=== PATIENT | male | born 1955 | race Caucasian/White ===

== ENCOUNTER 2018-02-02 09:39 | Day surgery (SDC) | payer MEDICARE ==
[2018-02-01 10:00] LABS: BASOPHILS % (AUTO) 0.5 % (0-1); EOSINOPHILS # (AUTO) 0.3 X10'3 (0-0.9); EOSINOPHILS % (AUTO) 4.3 % (0-6); HEMATOCRIT 48.8 % (42.0-52.0); HEMOGLOBIN 16.6 g/dl (14.0-17.9); LYMPHOCYTES % (AUTO) 31.1 % (21-51); MEAN CORPUSCULAR HEMOGLOBIN 31.8 PG (27.0-31.0); MEAN CORPUSCULAR HGB CONC 34.1 % (33.0-36.5); MEAN CORPUSCULAR VOLUME 93.5 FL (78-98); MEAN PLATELET VOLUME 8.3 FL (7.4-10.4); MONOCYTES # (AUTO) 0.5 X10'3 (0-0.9); MONOCYTES % (AUTO) 7.1 % (2-12); NEUTROPHILS # (AUTO) 3.8 X10'3 (1.8-7.7); PLATELET COUNT 201 X10'3 (140-440); RED BLOOD COUNT 5.22 X10'6 (4.70-6.10); WHITE BLOOD COUNT 6.6 X10'3 (4.5-11.0)
[2018-02-01 10:10] LABS: PARTIAL THROMBOPLASTIN TIME 26 SECONDS (22-32)
[2018-02-01 10:14] LABS: ALBUMIN 3.9 G/DL (3.4-5.0); ANION GAP 9 (8-16); BLOOD UREA NITROGEN 13 MG/DL (7-18); BUN/CREATININE RATIO 15.5 (5.4-32.0); CALCIUM 9.4 MG/DL (8.5-10.1); CHLORIDE 103 MMOL/L (99-107); CREATININE 0.84 MG/DL (0.60-1.10); GLUCOSE 135 MG/DL (70-104); POTASSIUM 4.4 MMOL/L (3.5-5.1); SODIUM 140 MMOL/L (135-145); TOTAL CARBON DIOXIDE 28.2 MMOL/L (24-32); eGFR > 90 ML/MIN
[2018-02-02] VITALS (10 sets, daily range): BP systolic 128–165; BP diastolic 69–89
[~2018-02-02] VITALS: Ht 185.4 cm; Wt 103.8 kg
[2018-02-02] MEDS ORDERED: acetylcysteine 200 MG/ml 4ml vial PO PRN (10:00)
[2018-02-02] MEDS ORDERED: normal saline 1000ml 1,000 ML IV SCH (10:00)
[2018-02-02] MEDS ORDERED: diphenhydrAMINE 25mg capsule PO PRN (10:00)
[2018-02-02] MEDS ORDERED: ALBU8HFA PO (10:24)
[2018-02-02] MEDS ORDERED: DOXA4TAB2 PO (10:24)
[2018-02-02] MEDS ORDERED: CYCL10TA26 PO (10:24)
[2018-02-02] MEDS ORDERED: BISO1TAB39 PO (10:24)
[2018-02-02] MEDS ORDERED: NIFE90TA2 PO (10:24)
[2018-02-02] MEDS ORDERED: METF500T PO (10:24)
[2018-02-02] MEDS ORDERED: HYDR4TAB45 PO (10:24)
[2018-02-02] MEDS ORDERED: ATOR40TA3 PO (10:24)
[2018-02-02] MEDS ORDERED: METH-603 PO (10:24)
[2018-02-02] MEDS ORDERED: ASPI-1265 PO (10:24)
[2018-02-02] MEDS ORDERED: LORazepam 0.5 MG tablet PO PRN (10:30)
[2018-02-02] MEDS ORDERED: nitroGLYCERIN-Tridil 50MG/D5W 250 ML IV ONE (13:07)
[2018-02-02] MEDS ORDERED: heparin 1,000unit/ml 10ml vial 10 ML ONE (13:07)
[2018-02-02] MEDS ORDERED: iohexol 350 MG/ML 50ML vial IV ONE (13:07)
[2018-02-02] MEDS ORDERED: iohexol 350MG/ML 100ml bottle IV ONE (13:07)
[2018-02-02] MEDS ORDERED: fentaNYL/PF 50MCG/1 ML 2ML syringe ONE ×2 (13:32→15:01)
[2018-02-02] MEDS ORDERED: LIDOcaine 1%/PF (10mg/ml) 5ml vial ONE ×2 (13:33→13:48)
[2018-02-02] MEDS ORDERED: midazolam 2 mg/2 ml injection ONE ×2 (13:33→15:01)
== END 2018-02-02 20:00 | disposition home or self-care (01) ==
LOC: SSTAY O 09:39
PROVIDERS: ATTEND Internal Medicine Cardiovascular Disease
DX: I25.10 Atherosclerotic heart disease of native coronary artery without angina pectoris (principal); I74.5 Embolism and thrombosis of iliac artery; E11.51 Type 2 diabetes mellitus with diabetic peripheral angiopathy without gangrene; E78.5 Hyperlipidemia, unspecified; I10 Essential (primary) hypertension; F17.210 Nicotine dependence, cigarettes, uncomplicated; J44.9 Chronic obstructive pulmonary disease, unspecified; M19.90 Unspecified osteoarthritis, unspecified site; Z79.82 Long term (current) use of aspirin; Z79.84 Long term (current) use of oral hypoglycemic drugs; Z96.642 Presence of left artificial hip joint; Z90.89 Acquired absence of other organs; Z72.89 Other problems related to lifestyle; Z98.52 Vasectomy status; Z98.890 Other specified postprocedural states; Z79.899 Other long term (current) drug therapy
CPT/HCPCS: 36415; 75625; 80048; 82948; 85025; 85610; 85730; 93458; 99152; 99153; A6257; C1769; J1644; J2001; J2250; J3010; J3490; J7030; Q0163; Q9967

== ENCOUNTER 2018-04-19 06:48 | Day surgery (SDC) | payer MEDICARE ==
[2018-04-19] VITALS (10 sets, daily range): BP systolic 139–158; BP diastolic 60–91
[~2018-04-19] VITALS: Ht 185.4 cm; Wt 100.2 kg
[~2018-04-19 06:48] MED LIST: ALBU8HFA PO; ASPI-1265 PO; ATOR40TA3 PO; BISO1TAB39 PO; CYCL10TA26 PO; DOXA4TAB2 PO; HYDR4TAB45 PO; METF500T PO; METH-603 PO; NIFE90TA2 PO
[2018-04-19] MEDS ORDERED: normal saline 1000ml 1,000 ML IV PRN (07:15)
[2018-04-19 07:59] LABS: BASOPHILS % (AUTO) 0.3 % (0-1); EOSINOPHILS # (AUTO) 0.1 X10'3 (0-0.9); EOSINOPHILS % (AUTO) 2.2 % (0-6); HEMATOCRIT 48.7 % (42.0-52.0); HEMOGLOBIN 16.4 g/dl (14.0-17.9); LYMPHOCYTES # (AUTO) 1.7 X10'3 (1.1-4.8); MEAN CORPUSCULAR HEMOGLOBIN 31.4 PG (27.0-31.0); MEAN CORPUSCULAR HGB CONC 33.6 % (33.0-36.5); MEAN CORPUSCULAR VOLUME 93.4 FL (78-98); MEAN PLATELET VOLUME 8.5 FL (7.4-10.4); MONOCYTES # (AUTO) 0.5 X10'3 (0-0.9); MONOCYTES % (AUTO) 7.4 % (2-12); NEUTROPHILS % (AUTO) 63.1 % (42-75); PLATELET COUNT 178 X10'3 (140-440); RED BLOOD COUNT 5.21 X10'6 (4.70-6.10); RED CELL DISTRIBUTION WIDTH 14.9 % (11.5-14.5); WHITE BLOOD COUNT 6.3 X10'3 (4.5-11.0)
[2018-04-19 08:01] LABS: ALBUMIN 3.8 G/DL (3.4-5.0); ANION GAP 13 (8-16); BLOOD UREA NITROGEN 12 MG/DL (7-18); BUN/CREATININE RATIO 13.8 (5.4-32.0); CALCIUM 9.1 MG/DL (8.5-10.1); CHLORIDE 102 MMOL/L (99-107); CREATININE 0.87 MG/DL (0.60-1.10); GLUCOSE 132 MG/DL (70-104); POTASSIUM 4.3 MMOL/L (3.5-5.1); SODIUM 138 MMOL/L (135-145); TOTAL CARBON DIOXIDE 23.2 MMOL/L (24-32); eGFR 89 ML/MIN
[2018-04-19] MEDS ORDERED: fentaNYL/PF 50MCG/1 ML 2ML syringe IV PRN (08:50)
[2018-04-19] MEDS ORDERED: LIDOcaine 1%/PF 5ML 10 MG/ML VIAL SQ ONE (08:50)
[2018-04-19] MEDS ORDERED: midazolam 2 mg/2 ml injection IV PRN (08:50)
[2018-04-19] MEDS ORDERED: iohexol 300mg/ml 100ml inj. ONE ×2 (09:11→09:17)
[2018-04-19] MEDS ORDERED: LIDOcaine 1%/PF 5ML 10 MG/ML VIAL ONE ×2 (09:11→09:17)
[2018-04-19] MEDS ORDERED: midazolam 2 mg/2 ml injection ONE ×3 (09:17→09:49)
[2018-04-19] MEDS ORDERED: heparin 1,000 UNITS/NS 500ml 500 ML ONE (09:17)
[2018-04-19] MEDS ORDERED: fentaNYL/PF 50MCG/1 ML 2ML syringe ONE ×3 (09:17→09:49)
[2018-04-19] MEDS ORDERED: clopidogrel 300mg tablet PO ONE (10:10)
[2018-04-19] MEDS ORDERED: normal saline 1000ml 1,000 ML IV SCH (10:22)
== END 2018-04-19 15:00 | disposition home or self-care (01) ==
LOC: SSTAY O 06:48
PROVIDERS: ATTEND Radiology Diagnostic Radiology
DX: I70.92 Chronic total occlusion of artery of the extremities (principal); I70.211 Atherosclerosis of native arteries of extremities with intermittent claudication, right leg; I25.10 Atherosclerotic heart disease of native coronary artery without angina pectoris; I10 Essential (primary) hypertension; E78.5 Hyperlipidemia, unspecified; J44.9 Chronic obstructive pulmonary disease, unspecified; M19.90 Unspecified osteoarthritis, unspecified site; F17.210 Nicotine dependence, cigarettes, uncomplicated; J45.998 Other asthma; M06.9 Rheumatoid arthritis, unspecified; E11.51 Type 2 diabetes mellitus with diabetic peripheral angiopathy without gangrene; Z79.82 Long term (current) use of aspirin; Z90.89 Acquired absence of other organs; Z72.89 Other problems related to lifestyle; Z98.52 Vasectomy status; Z96.643 Presence of artificial hip joint, bilateral; Z96.669 Presence of unspecified artificial ankle joint; Z79.84 Long term (current) use of oral hypoglycemic drugs; Z79.891 Long term (current) use of opiate analgesic; Z79.899 Other long term (current) drug therapy; Z98.890 Other specified postprocedural states
CPT/HCPCS: 36415; 37221; 76937; 80048; 82948; 85025; 99152; 99153; A6219; C1725; C1760; C1769; C1876; C1894; J1644; J2001; J2250; J3010; J7030; Q9967; A4620

== ENCOUNTER 2022-02-26 11:43 | Observation (INO) | payer MEDICARE, BC ==
[2022-02-17 14:49] LABS: BASOPHILS % (AUTO) 0.6 % (0-1); EOSINOPHILS # (AUTO) 0.1 X10'3 (0-0.9); EOSINOPHILS % (AUTO) 1.3 % (0-6); LYMPHOCYTES # (AUTO) 1.6 X10'3 (1.1-4.8); LYMPHOCYTES % (AUTO) 19.4 % (21-51); MEAN CORPUSCULAR HEMOGLOBIN 29.7 PG (27.0-31.0); MEAN CORPUSCULAR HGB CONC 33.4 g/dL (33.0-36.5); MEAN CORPUSCULAR VOLUME 88.8 FL (78-98); MEAN PLATELET VOLUME 8.1 FL (7.4-10.4); MONOCYTES # (AUTO) 0.5 X10'3 (0-0.9); MONOCYTES % (AUTO) 6.6 % (2-12); NEUTROPHILS % (AUTO) 72.1 % (42-75); PRE OP HEMATOCRIT 45.4 % (42.0-52.0); PRE OP HEMOGLOBIN 15.2 g/dL (14.0-17.9); PRE OP PLATELET COUNT 264 X10'3 (140-440); RED BLOOD COUNT 5.11 X10'6 (4.70-6.10); RED CELL DISTRIBUTION WIDTH 15.1 % (11.5-14.5)
[2022-02-17 14:49] LABS: CLARITY,URINE SLIGHTLY CLOUDY (Clear); COLOR,URINE YELLOW (Yellow); GLUCOSE, URINE NEGATIVE (Neg); KETONES,URINE NEGATIVE (Neg); LEUKOCYTE ESTERASE ,URINE NEGATIVE (Neg); NITRITES, URINE NEGATIVE (Neg); OCCULT BLOOD,URINE NEGATIVE (Neg); PH,URINE 5.5 (4.8-8.0); PROTEIN,URINE NEGATIVE (Neg); UROBILINOGEN,URINE 0.2 E.U/dL (0.2-1.0)
[2022-02-17 14:58] LABS: UA COLLECTION TYPE CLN CATCH MIDSTREAM
[2022-02-17 14:59] LABS: RBC,URINE 0-2 /HPF (0-2)
[2022-02-17 15:00] LABS: BACTERIA,URINE NONE SEEN /HPF (Neg); MUCUS STRANDS MANY /LPF (Neg); SQUAMOUS EPITHELIAL CELL,UR MODERATE /LPF (FEW)
[2022-02-17 15:18] LABS: ALBUMIN 4.2 G/DL (3.4-5.0); ALBUMIN/GLOBULIN RATIO 1.1 (1.1-1.5); ALKALINE PHOSPHATASE 95 IU/L (46-116); BLOOD UREA NITROGEN 17 MG/DL (7-18); BUN/CREATININE RATIO 14.8 (5.4-32.0); CALCIUM 9.4 MG/DL (8.5-10.1); CHLORIDE 103 MMOL/L (99-107); CREATININE 1.15 MG/DL (0.60-1.10); PRE OP ALT 34 U/L (30-65); PRE OP ANION GAP 11 (8-16); PRE OP AST 23 U/L (10-37); PRE OP BILIRUB, TOTAL 0.5 MG/DL (0.0-1.0); PRE OP GLUCOSE 120 MG/DL (70-104); PRE OP POTASSIUM 4.2 MMOL/L (3.4-5.1); PRE OP SODIUM 138 MMOL/L (135-145); TOTAL CARBON DIOXIDE 23.8 MMOL/L (24-32); eGFR 63 ML/MIN
[~2022-02-26] VITALS: Ht 185.4 cm; Wt 98.3 kg
[2022-02-26] VITALS (19 sets, daily range): BP systolic 130–196; BP diastolic 74–92
[~2022-02-26 11:43] MED LIST changes: +ASCO500C17 PO; -ASPI-1265 PO; -ATOR40TA3 PO; +ATOR40TA7 PO; +BUPR2TAB11 SL; +DOCUMENT DATE & TIME OF BETA-BLOCKER PO ONE; +ESZO3TAB44 PO; +FENO145T38 PO; -HYDR4TAB45 PO; +LOSA50TA64; +MECO10005 PO; -METF500T PO; -METH-603 PO; +SEMA1PEN3 SQ; +albuterol 2.5 MG/3 ML nebule NEB ONE; +ceFAZolin inj. 2,000 MG in dextrose 5%-water 100 ML IV ONE; +famotidine 20mg tablet PO ONE; +vancomycin 1,500 MG in NS 300ml IV soln IV ONE
[2022-02-26] MEDS: ringers solution, lacted 1,000 ML IV SCH ×2 (13:01→20:05)
[2022-02-26] MEDS ORDERED: bacitracin 15gm ointment TP ONE (14:49)
[2022-02-26] MEDS ORDERED: sevoflurane 250ml liquid IH ONE (15:22)
[2022-02-26] MEDS ORDERED: midazolam 1 mg/ML 2ml injection ONE (15:29)
[2022-02-26] MEDS ORDERED: fentaNYL /PF 50mcg/ml 5ml ampule ONE (15:53)
[2022-02-26] MEDS ORDERED: ROPIVAcaine 0.5% (5mg/ml) 30ml vial ONE ×2 (15:58)
[2022-02-26] MEDS ORDERED: propofol inj 20 ML IV ONE (15:58)
[2022-02-26] MEDS ORDERED: LIDOcaine 2% (20mg/ml) 5ml vial ONE (15:58)
[2022-02-26] MEDS ORDERED: ondansetron/PF 4mg/2ml inj ONE (16:29)
[2022-02-26] MEDS ORDERED: dexamethasone sod phosphate 4mg/ml inj. ONE (16:29)
[2022-02-26] MEDS ORDERED: ondansetron/PF 4mg/2ml inj IV PRN ×2 (16:35→17:55)
[2022-02-26] MEDS ORDERED: meperidine/PF 25mg/ml syringe IV PRN ×3 (16:35)
[2022-02-26] MEDS ORDERED: morphine 2 MG/ML inj. syringe IV PRN ×3 (16:35→17:55)
[2022-02-26] MEDS ORDERED: hydrALAZINE 20mg/ml inj. IV PRN (16:35)
[2022-02-26] MEDS ORDERED: acetaminophen 1,000mg/100ml IV 100 ML IV PRN (16:35)
[2022-02-26] MEDS ORDERED: ringers solution, lacted 1,000 ML IV SCH (16:35)
[2022-02-26] MEDS ORDERED: morphine 4 MG/ML inj SYRINge IV PRN (16:35)
[2022-02-26] MEDS ORDERED: labetalol 20mg/4ml (5mg/ml) syringe IV PRN (16:35)
[2022-02-26] MEDS ORDERED: proCHLORperazine 10 MG/2 ml inj IV PRN (16:35)
[2022-02-26] MEDS ORDERED: ketorolac trometh. 30mg/ml inj. IV ONE (16:35)
[2022-02-26] MEDS ORDERED: ROPIVAcaine 0.2% (10 MG/5 ML) BOLUS INJECTION POPLITEAL PRN (16:40)
[2022-02-26] MEDS ORDERED: ROPIVAcaine 0.2%/PF PUMP/bolus 545 ML POPLITEAL SCH (16:40)
[2022-02-26] MEDS ORDERED: POTASSIUM BICARB 20meq eff tab 20 MEQ TABLET.EFF PO PRN ×2 (17:55)
[2022-02-26] MEDS ORDERED: mag hydrox/Alum hydrox/simeth 30ml oral suspension PO PRN (17:55)
[2022-02-26] MEDS ORDERED: potassium CL 10mEq/100ml bag 100 ML IV PRN (17:55)
[2022-02-26] MEDS ORDERED: magnesium 4gm in 100ml NS 100 ML IV PRN (17:55)
[2022-02-26] MEDS ORDERED: acetaminophen 325mg tablet PO PRN (17:55)
[2022-02-26] MEDS ORDERED: magnesium hydroxide 30ml (MOM) UD suspension PO PRN (17:55)
[2022-02-26] MEDS ORDERED: magnesium 2GM in 50ml NS 50 ML IV PRN (17:55)
[2022-02-26] MEDS ORDERED: magnesium Cl slow-release 64mg tablet PO PRN (17:55)
[2022-02-26] MEDS ORDERED: ATOR80TA PO (18:11)
[2022-02-26] MEDS ORDERED: LOSA50TA3 PO (18:12)
--- NOTE | 2022-02-26 18:15 | NUR ---
PT ARRIVED TO VIA BED ACCOMPANIED BY DR. CHANCE-ANESTHESIA REPORT GIVEN, PT WAKING UP, VSS, DENIES PAIN, ON-Q CATHETER IN PLACE, LEFT FOOT DSRG-SPLINT AND ELIO CDI, ELEVATED WITH ICE BEHIND KNEE, SCDS ON, PIV 20G TO LEFT FA, LEFT FOOT-TOES PINK WARM, + CAP REFILL
[2022-02-26] MEDS ORDERED: zolpidem 5mg tablet PO PRN (19:10)
[2022-02-26] MEDS ORDERED: non-formulary drug (albuterol inhaler (Pro-Air Inhaler) 0 PUFFS) PO PRN (19:10)
[2022-02-26] MEDS ORDERED: DEXTROSE 15 GM of carb/4 tabs (each vial/BOTTLE has 4 tablets) PO PRN ×2 (19:45)
[2022-02-26] MEDS ORDERED: insulin Lispro (HumaLOG) vial - multi-dose SQ SCH (19:45)
[2022-02-26] MEDS ORDERED: dextrose 50%-water 50ml dispensing syringe IV PRN ×2 (19:45)
[2022-02-26] MEDS ORDERED: glucagon, human recombinant 1mg kit SUBCUT PRN (19:45)
[2022-02-26] MEDS ORDERED: MESSAGE TO PHARMACY PO ONE (19:45)
--- NOTE | 2022-02-26 19:45 | NUR ---
PT OK WITH STAYING OVERNIGHT, WAS ABLE TO VOID ONCE STANDING, PAIN UNDER CONTROL 01/01, ON-Q ATTACHED AND RUNNING AT 2ML/HR-PT EDUCATED ON USE, SCDS ON, PIV 20G LEFT UE-LR RUNNING AT 100ML/HR, SPOKE WITH PT'S -SHE IS GOING TO BRING HIM IN SOME DINNER, VSS, DRSG TO LEFT FOOT-CDI, TOES ON LEFT FOOT-PINK WARM, ABLE TO WIGGLE, REPORT CALLED TO MARIA R RN-ALL QUESTIONS ANSWERED, TAKEN WITH ALL BELONGINGS TO RM [id number], BED LOW AND LOCKED, CALL LIGHT IN REACH, HOOKED UP TO MONITORS, PRIMARY RN IN TO RECEIVE PT.
[2022-02-26] MEDS: K and/or MAG REPLACEMENT MC SCH (20:00)
[2022-02-26 20:29] LABS: MAGNESIUM 1.8 MG/DL (1.5-2.4); POTASSIUM 4.1 MMOL/L (3.5-5.1)
[2022-02-26 20:57] LABS: HEMOGLOBIN A1C 6.7 % (4.5-6.2)
[2022-02-26] MEDS: BUPRENORPHINE HCL 2 MG SL SCH (21:00)
[2022-02-26] MEDS ORDERED: insulin glargine (Lantus) pen - multi-dose SQ SCH (21:00)
[2022-02-26] MEDS ORDERED: atorvastatin 20mg tablet PO SCH (21:00)
[2022-02-26] MEDS: cyclobenzaprine 10mg tablet PO SCH (21:05)
[2022-02-26] MEDS: docusate sod 100mg capsule PO SCH (21:05)
--- NOTE | 2022-02-26 21:21 | NUR ---
patient just ate a sandwich and drank a milkshake. 2100 BS 257. patient refused Lantus at this time, but we agreed to recheck BS at 0200
[2022-02-27 02:00] VITALS: BP 142/80
[2022-02-27] MEDS: HYDROcodone/acetaminophen 10/325mg tab PO PRN ×2 (02:19→08:33)
[2022-02-27 06:00] VITALS: BP 166/69
[2022-02-27] MEDS: cyclobenzaprine 10mg tablet PO SCH (07:11)
[2022-02-27] MEDS: docusate sod 100mg capsule PO SCH (07:12)
[2022-02-27] MEDS ORDERED: ascorbic acid 500mg tablet PO SCH (08:00)
[2022-02-27] MEDS ORDERED: BISOPROLOL PO SCH (08:00)
[2022-02-27] MEDS ORDERED: cyanocobalamin 500mcg tablet PO SCH (08:00)
[2022-02-27] MEDS ORDERED: NIFEdipine XL 30mg tablet PO SCH (08:00)
[2022-02-27] MEDS ORDERED: doxazosin mesylate 2mg tablet PO SCH (08:00)
[2022-02-27] MEDS ORDERED: fenofibrate 145mg tablet PO SCH (08:00)
[2022-02-27] MEDS: BUPRENORPHINE HCL 2 MG SL SCH ×2 (08:00→13:00)
[2022-02-27] MEDS: K and/or MAG REPLACEMENT MC SCH (08:00)
[2022-02-27] MEDS ORDERED: HYDROCHLOROTHIAZIDE PO SCH (08:00)
[2022-02-27] MEDS ORDERED: losartan 50mg tablet PO SCH (08:00)
[2022-02-27 08:11] LABS: MAGNESIUM 1.9 MG/DL (1.5-2.4); POTASSIUM 3.9 MMOL/L (3.5-5.1)
--- NOTE | 2022-02-27 09:05 | NUR ---
DM Consult: pt hx T2DM A1C 6.7% this admit per EMR; appropriate A1C at this time. Addendum: 02/27/22 at [address] Amended: Links added.
[2022-02-27 10:00] VITALS: BP 122/62
--- NOTE | 2022-02-27 13:07 | NUR ---
Per AVI Cruz, no need a new OnQ ball for this patient upon discharge.
--- NOTE | 2022-02-27 13:23 | NUR ---
Discharge instructions given to patient, patient verbalized understanding of all instructions made. Peripheral IV catheter removed, tip intact. Instructed patient to ensure he has all his belongings with him before leaving the hospital. Patient was instructed on when to remove the OnQ ball catheter and how to do it. Patient verbalized understanding of instructions and he told me that this was his third time to do this as he had OnQ ball before. Patient was instructed to follow up with Dr. Rdoriguez as previously instructed.
--- NOTE | 2022-03-02 11:11 | NUR ---
Case Management DC follow up : Spoke w /Pt: via telephone .S/p: Pt Reports: " laughing, that he feels great, feels like he can walk on his left foot!" Reiterated discharge orders of no weight bearing on left foot and to keep leg dry.Patient verbalizes understanding, and compliance with after care.Denies fever, s/s of infection and or drainage at lt foot incision site.Verbalized he removed On Q Ball yesterday,03/01/22, feels great , mild pain addressed with Tylenol.Verbalizes he plans to call Dr. Rodriguez office today and schedule follow up appointment. Needs met , questions/concerns addressed at DC. Verbalizes the staff was great in his care;however, would have liked to have been discharged earlier.
[2022-03-02] MEDS ORDERED: SEMAGLUTIDE 1 MG/0.75 ML SQ SCH (19:15)
== END 2022-02-27 13:20 | disposition home or self-care (01) ==
LOC: UNDOADMIN 11:43 → PAS IN 11:43 → PAS 11:51 → INTOOBSV 11:51 → PAS IN 11:51 → EDSTATUS 15:15 → ORTHO 4S 19:38
PROVIDERS: ADMIT Podiatrist Foot & Ankle Surgery; ATTEND Podiatrist Foot & Ankle Surgery
DX: M19.072 Primary osteoarthritis, left ankle and foot (principal); Z20.822 Contact with and (suspected) exposure to COVID-19; M19.071 Primary osteoarthritis, right ankle and foot; M65.872 Other synovitis and tenosynovitis, left ankle and foot; I10 Essential (primary) hypertension; E11.9 Type 2 diabetes mellitus without complications; F17.200 Nicotine dependence, unspecified, uncomplicated; Z98.1 Arthrodesis status; Z79.899 Other long term (current) drug therapy
CPT/HCPCS: 20680; 27702; 36415; 71046; 73600; 80053; 81001; 82948; 83036; 83735; 84132; 85025; 87088; 96365; 96366; 96367; 96375; A6223; C1713; C1776; J0131; J0690; J1100; J1885; J2250; J2405; J2704; J2795; J3010; J3370; J3490; J7040; J7060; J7120; U0003; U0005; 76000; A4618; A6253; A6449; A7000; G0378; J1815